=== PATIENT | female | born 1960 | race Caucasian/White ===

== ENCOUNTER 2019-09-29 19:09 | Emergency (ER) | payer SELFPAY ==
[2019-09-29 19:15] VITALS: BP 168/90; PULSE 88; BMI 25.7
[2019-09-29 19:18] VITALS: TEMP 98.1
[2019-09-29] MEDS ORDERED: KETOROLAC TROMETHAMINE 60 MG/2 ML VIAL IM ONE (19:25)
[2019-09-29] MEDS ORDERED: traMADol HCL 50 MG TABLET PO ONE (19:26)
--- NOTE | 2019-09-29 20:00 | PDOC ---
History of Present Illness - General Chief Complaint: Injury Stated Complaint: KNEE PAIN Time Seen by Provider: 09/29/19 19:16 History Source: Patient - History of Present Illness Occurred: reports: this evening Pain Location: reports: lower extremity Past History - Past Medical History Allergies/Adverse Reactions: Allergies Allergy/AdvReac Type Severity Reaction Status Date / Time No Known Drug Allergies Allergy Verified 09/29/19 19:56 Home Medications: Ambulatory Orders Acetaminophen [Tylenol -] 1,000 mg PO Q6H #30 tablet 09/29/19 Tramadol HCl 50 mg PO Q6H #6 tablet MDD 200mg 09/29/19 COPD: No - Immunization History Immunization Up to Date: Yes - Psycho Social/Smoking Cessation Hx Smoking History: Never smoked Information on smoking cessation initiated: No Hx Alcohol Use: No Drug/Substance Use Hx: No Review of Systems - Review of Systems Respiratory: No: Shortness of Breath Cardiac (ROS): No: Chest Pain Musculoskeletal: Yes: Joint Pain, Neck Pain. No: Back Pain, Joint Swelling Neurological: No: Headache, Dizziness *Physical Exam - Vital Signs Last Vital Signs Temp Pulse Resp BP Pulse Ox 98.1 F 88 18 168/90 100 09/29/19 19:13 09/29/19 19:13 09/29/19 19:13 09/29/19 19:13 09/29/19 19:13 - Physical Exam General Appearance: Yes: Appropriately Dressed, Severe Distress HEENT: positive: Normal Voice Neck: positive: Supple. negative: Tender Gastrointestinal/Abdominal: positive: Soft. negative: Tender Extremity: positive: Normal Inspection, Tender (diffusely to R hip/thigh, no joint swelling or deformity, limping in ED, NVI). negative: Swelling Integumentary: positive: Dry Neurologic: positive: Fully Oriented, Alert, Normal Mood/Affect, Motor Strength 5/5 ED Treatment Course - RADIOLOGY Radiology Studies Ordered: Category Date Time Status FEMUR-RIGHT [RAD] Stat Radiology 09/29/19 19:25 Ordered HIP & PELVIS-RIGHT [RAD] Stat Radiology 09/29/19 19:25 Ordered KNEE 2 POS-RIGHT [RAD] Stat Radiology 09/29/19 19:26 Ordered - Medications Given in the ED: ED Medications Discontinued Medications Generic Name Dose Route Start Last Admin Trade Name Freq PRN Reason Stop Dose Admin Ketorolac Tromethamine 60 mg 09/29/19 19:25 09/29/19 19:57 Toradol Injection - IM 09/29/19 19:26 60 mg ONCE ONE Administration Tramadol HCl 50 mg 09/29/19 19:26 09/29/19 19:57 Ultram - PO 09/29/19 19:27 50 mg ONCE ONE Administration Medical Decision Making - Medical Decision Making 09/29/19 20:00 59 yo F, no sig hx, BIB daughter for RLE pain s/p fall. States while in [employer], patient slipped on grapes that was on the ground and fell onto outstretched right leg but was able to break her fall. Complaining of severe pain to right hip, thigh and knee and unable to bear weight since. No other injuries at this time and did not hit head per pt/ No CP or dizziness prior to fall see exam M/l RLE strain XRs neg for fx Improved w/ pain meds in ED Dc w/ pain control Discharge - Discharge Information Problems reviewed: Yes Clinical Impression/Diagnosis: Strain of right knee and leg Qualifiers: Encounter type: initial encounter Qualified Code(s): S86.911A - Strain of unspecified muscle(s) and tendon(s) at lower leg level, right leg, initial encounter Condition: Improved Disposition: HOME - Additional Discharge Information Prescriptions: Acetaminophen [Tylenol -] 1,000 mg PO Q6H #30 tablet Tramadol HCl 50 mg PO Q6H #6 tablet MDD 200mg - Follow up/Referral - Patient Discharge Instructions Patient Printed Discharge Instructions: DI for Muscle Strain Additional Instructions: X-rays did not show any broken bones You most likely sustained a right lower extremity strain Take medications as needed and follow-up with your PMD if pain persists - Post Discharge Activity Work/Back to School Note: Back to Work
== END 2019-09-29 20:50 | disposition home or self-care (01) ==
LOC: JERFT 19:09
PROC: 3E0233Z Introduction of Anti-inflammatory into Muscle, Percutaneous Approach (ICD-10-PCS; principal; 2019-09-29)
DX: S86.911A Strain of unspecified muscle(s) and tendon(s) at lower leg level, right leg, initial encounter (principal); W01.0XXA Fall on same level from slipping, tripping and stumbling without subsequent striking against object, initial encounter; Y93.9 Activity, unspecified; Y92.512 Supermarket, store or market as the place of occurrence of the external cause
CPT/HCPCS: 73523-TC-FY; 73552-TC-RT-FY; 73560-TC-RT-FY; 99281-25